=== PATIENT | male | born 1970 | race Two or more races ===

== ENCOUNTER 2021-05-21 14:34 | Outpatient (CLI) | payer OTHER | END 2021-05-21 14:44 | disposition home or self-care (01) | LOC: RAD 14:34 | PROVIDERS: ATTEND Orthopaedic Surgery | DX: M25.571 Pain in right ankle and joints of right foot (principal); M79.604 Pain in right leg ==

== ENCOUNTER 2021-06-18 10:17 | Outpatient (CLI) | payer OTHER | END 2021-06-18 10:34 | disposition home or self-care (01) | LOC: TOM 10:17 | PROVIDERS: ATTEND Orthopaedic Surgery | DX: M25.571 Pain in right ankle and joints of right foot (principal); M19.171 Post-traumatic osteoarthritis, right ankle and foot ==

== ENCOUNTER 2021-11-29 17:15 | Emergency (ER) | payer OTHER ==
[~2021-11-29] VITALS: Ht 185.4 cm; Wt 170.1 kg
[2021-11-29] MEDS ORDERED: ACIDO FOLICO 1 MG. (18:27)
[2021-11-29] MEDS ORDERED: HYDROCHLOROTHIA25 MG (18:29)
[2021-11-29] MEDS ORDERED: METROPOLOL 50 MG (18:29)
[2021-11-29] MEDS ORDERED: COZAAR100 MG (18:29)
[2021-11-29] MEDS ORDERED: DOXAZOSIN MESYLA2 MG (18:30)
== END 2021-11-29 20:56 | disposition home or self-care (01) ==
LOC: ER 17:15
DX: S80.01XA Contusion of right knee, initial encounter (principal); W18.30XA Fall on same level, unspecified, initial encounter; Y93.89 Activity, other specified; Y92.018 Other place in single-family (private) house as the place of occurrence of the external cause; Y99.9 Unspecified external cause status; I10 Essential (primary) hypertension

== ENCOUNTER 2021-11-30 10:20 | Outpatient (CLI) | payer OTHER ==
[~2021-11-30 10:20] MED LIST: ACIDO FOLICO 1 MG.; COZAAR100 MG; DOXAZOSIN MESYLA2 MG; HYDROCHLOROTHIA25 MG; METROPOLOL 50 MG
== END 2021-11-30 10:28 | disposition home or self-care (01) ==
LOC: MRI 10:20
PROVIDERS: ATTEND General Practice
DX: S80.911A Unspecified superficial injury of right knee, initial encounter (principal)
CPT/HCPCS: 73721

== ENCOUNTER 2021-12-07 16:15 | Outpatient (CLI) | payer OTHER | END 2021-12-07 16:16 | disposition home or self-care (01) | LOC: RAD 16:15 | PROVIDERS: ATTEND Orthopaedic Surgery | DX: S82.124A Nondisplaced fracture of lateral condyle of right tibia, initial encounter for closed fracture (principal) ==

== ENCOUNTER 2021-12-08 09:19 | Outpatient (CLI) | payer OTHER | END 2021-12-08 09:21 | disposition home or self-care (01) | LOC: MRI 09:19 | DX: S82.124A Nondisplaced fracture of lateral condyle of right tibia, initial encounter for closed fracture (principal) ==

== ENCOUNTER 2022-01-27 09:59 | Outpatient (CLI) | payer OTHER | END 2022-01-27 10:11 | disposition home or self-care (01) | LOC: RAD 09:59 | PROVIDERS: ATTEND Orthopaedic Surgery | DX: S82.124D Nondisplaced fracture of lateral condyle of right tibia, subsequent encounter for closed fracture with routine healing (principal) ==